=== PATIENT | male | born 1955 ===

== ENCOUNTER 2016-11-14 07:34 | Emergency (ER) | payer MEDICARE ==
--- NOTE | 2016-11-14 08:48 | ED PDOC ---
HPI: Psych/Substance Abuse Time Seen by Provider: 11/14/16 07:35 Chief Complaint (Nursing): Dizziness/Lightheaded Chief Complaint (Provider): Dizziness/Lightheaded History Per: Patient History/Exam Limitations: no limitations Onset/Duration Of Symptoms: Mins Current Symptoms Are (Timing): Better Suicide/Self Injury Attempted (Context): None Modifying Factor(s): None Associated Symptoms: Anxiety Involuntary Hold By: None Additional Complaint(s): Patient is a 61 year old male with a history of HTN and pacemaker, presents to ED for evaluation after a panic attack this morning. Patient states he was in the hospital for a outpt CT for a hernia, sent from the clinic but while waiting experienced severe anxiety. Denies chest pain, headache, fever or back pain. Notes increased stress in life secondary to son having a drug addiction problem. denies SI or HI. n Past Medical History Reviewed: Historical Data, Nursing Documentation, Vital Signs Vital Signs: Last Vital Signs Temp 98.1 F 11/14/16 07:43 Pulse 84 11/14/16 07:43 Resp 20 11/14/16 07:43 BP 117/68 11/14/16 07:43 Pulse Ox 97 11/14/16 07:43 - Medical History PMH: HTN Denies: Asthma, Diabetes, Chronic Kidney Disease - Surgical History Surgical History: Coronary Stent, Pacemaker (AICD - placed in [place]) - Family History Family History: States: Unknown Family Hx - Living Arrangements Living Arrangements: With Family - Social History Current smoker - smoking cessation education provided: No Alcohol: None Drugs: Denies - Home Medications Home Medications: Ambulatory Orders Medication Instructions Recorded Aspirin [Ecotrin] 81 mg PO DAILY #0 tabec 01/06/16 Atorvastatin [Lipitor] 10 mg PO HS #0 tab 01/06/16 Bumetanide 1 mg PO DAILY #0 tablet 01/06/16 Carvedilol [Coreg] 25 mg PO Q12 #0 tab 01/06/16 Ergocalciferol (Vitamin D2) 1.25 mg PO QWK #0 capsule 01/06/16 [Vitamin D2] Ezetimibe [Zetia] 10 mg PO DAILY #0 tab 01/06/16 Lisinopril [Zestril] 10 mg PO DAILY #0 tab 01/06/16 Naproxen [Naprosyn] 500 mg PO BID PRN #0 tablet 01/06/16 Nitroglycerin 0.4 mg SL Q5M PRN #5 tab 01/06/16 Omeprazole [Prilosec] 20 mg PO BID #0 capsule. 01/06/16 Pramipexole Di-HCl [Mirapex] 0.25 mg PO HS #30 tab 01/06/16 - Allergies Allergies/Adverse Reactions: Allergies Allergy/AdvReac Type Severity Reaction Status Date / Time No Known Allergies Allergy Verified 11/14/16 07:49 Review of Systems ROS Statement: Except As Marked, All Systems Reviewed And Found Negative Constitutional: Negative for: Fever, Weakness Eyes: Negative for: Vision Change Cardiovascular: Negative for: Chest Pain, Palpitations, Light Headedness Respiratory: Negative for: Shortness of Breath Gastrointestinal: Negative for: Nausea, Vomiting Neurological: Negative for: Weakness, Numbness Psych: Positive for: Anxiety Physical Exam - Reviewed Nursing Documentation Reviewed: Yes Vital Signs Reviewed: Yes - Physical Exam Appears: Positive for: Non-toxic, No Acute Distress Skin: Positive for: Normal Color, Warm Eye Exam: Positive for: Normal appearance Neck: Positive for: Normal, Painless ROM Cardiovascular/Chest: Positive for: Regular Rate, Rhythm. Negative for: Murmur Respiratory: Positive for: Normal Breath Sounds. Negative for: Respiratory Distress Gastrointestinal/Abdominal: Positive for: Normal Exam Extremity: Positive for: Normal ROM. Negative for: Pedal Edema, Calf Tenderness Neurologic/Psych: Positive for: Alert, Oriented - Laboratory Results Result Diagrams: 11/14/16 10:02 11/14/16 10:02 - ECG ECG: Positive for: Interpreted By Me ECG Rhythm: Positive for: Normal QRS, Sinus Rhythm. Negative for: ST/T Changes Interpretation Of Abn EKG: (+) left axis deviation with flipped T waves in leads V5 and V6 O2 Sat by Pulse Oximetry: 97 (RA) Pulse Ox Interpretation: Normal Medical Decision Making Medical Decision Making: Time: 0830 Initial impression: Anxiety Initial plan: -- EKG -- CMP -- CBC Time: 1030 Labs reviewed all WNL. Will check orthostatic blood pressure/pulse at this time. If normal patient will be discharged Case discussed with Dr. 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 patient will be dc from here and have a CT outpatient for hernia evaluation Scribe Attestation: Documented by Chata Castellano acting as a scribe for Sushant Stephen MD MD Scribe Attestation: All medical record entries made by the Scribe were at my direction and personally dictated by me. I have reviewed the chart and agree that the record accurately reflects my personal performance of the history, physical exam, medical decision making, and the department course for this patient. I have also personally directed, reviewed, and agree with the discharge instructions and disposition. Disposition - Clinical Impression Clinical Impression: Anxiety - Patient ED Disposition Is Patient to be Admitted: No Counseled Patient/Family Regarding: Studies Performed, Diagnosis, Need For Followup - Disposition Disposition: Routine/Home Disposition Time: 10:00 Condition: GOOD Additional Instructions: follow up with your primary doctor in 1-2 days. return to the ED with any worsening or concerning symptoms Instructions: Anxiety (ED)
[2016-11-14 10:26] LABS: CHLORIDE 103 mmol/L (98-107)
[2016-11-14 10:27] LABS: POTASSIUM 4.9 MMOL/L (3.6-5.0); SODIUM 138 mmol/l (132-148)
[2016-11-14 10:29] LABS: ALB/GLOB RATIO 1.3 (1.0-2.1); CARBON DIOXIDE 23 mmol/L (22-30); GFR AFRICAN-AMERICAN > 60; TOTAL PROTEIN 7.6 G/DL (6.3-8.2)
[2016-11-14 10:30] LABS: ALKALINE PHOSPHATASE 133 U/L (38-126); ALT/SGPT 33 U/L (21-72); AST/SGOT 28 U/L (17-59); BLOOD UREA NITROGEN 28 mg/dl (9-20); CALCIUM 9.1 mg/dL (8.4-10.2); GLUCOSE,RANDOM 110 mg/dL (75-110)
[2016-11-14 10:35] LABS: BASO % 0.5 % (0.0-2.0); EOS # 0.1 K/uL (0.0-0.7); EOS % 0.9 % (0.0-4.0); HEMATOCRIT 44.8 % (35.0-51.0); LYMPH # 1.3 K/uL (1.0-4.3); LYMPH % 14.6 % (20.0-40.0); MEAN CELL VOLUME 85.6 fl (80.0-94.0); MEAN CORPUSCULAR HEMOGLOBIN 28.3 pg (27.0-31.0); MEAN CORPUSCULAR HGB CONC 33.1 g/dL (33.0-37.0); MEAN PLATELET VOLUME 8.7 fl (7.2-11.7); MONO # 0.7 K/uL (0.0-0.8); MONO % 7.8 % (0.0-10.0); NEUT % 76.2 % (50.0-75.0); NRBC % 0.1 % (0.0-0.0); RED CELL DISTRIBUTION WIDTH 15.3 % (11.5-14.5); WHITE BLOOD COUNT 9.2 K/uL (4.8-10.8)
[2016-11-14 12:00] VITALS: BP 128/78; PULSE 78; RESP 19; TEMP 97.6
--- NOTE | 2016-11-14 18:21 | CARD ---
APPROVED REPORT EKG Measurement Heart [id number] <Conclusion> Normal sinus rhythm Left axis deviation Left ventricular hypertrophy with QRS widening T wave abnormality, consider lateral ischemia Abnormal ECG
[2016-11-16 01:16] VITALS: O2SAT 97
== END 2016-11-14 12:00 | disposition home or self-care (01) ==
LOC: H.ER 07:34
DX: F41.9 Anxiety disorder, unspecified (principal); R42 Dizziness and giddiness; I10 Essential (primary) hypertension; Z79.82 Long term (current) use of aspirin; Z95.0 Presence of cardiac pacemaker; Z95.5 Presence of coronary angioplasty implant and graft; R94.31 Abnormal electrocardiogram [ECG] [EKG]

== ENCOUNTER 2017-04-23 07:33 | Day surgery (SDC) | payer MEDICARE ==
[2017-04-23] MEDS ORDERED: Lactated Ringer's 500 ML IV ONE (08:07)
[2017-04-23] MEDS ORDERED: Propofol 10 mg/ml Inj (20 ML) ONE ×2 (10:04→11:45)
[2017-04-23 12:07] VITALS: BP 144/91; PULSE 80; RESP 15; TEMP 97; O2SAT 100
== END 2017-04-23 12:27 | disposition home or self-care (01) ==
LOC: H.ENDO 07:33
PROVIDERS: ATTEND Internal Medicine Gastroenterology
DX: Z12.11 Encounter for screening for malignant neoplasm of colon (principal); R13.10 Dysphagia, unspecified; J45.909 Unspecified asthma, uncomplicated; I25.10 Atherosclerotic heart disease of native coronary artery without angina pectoris; I11.0 Hypertensive heart disease with heart failure; I50.9 Heart failure, unspecified; E78.5 Hyperlipidemia, unspecified; G47.33 Obstructive sleep apnea (adult) (pediatric); K64.1 Second degree hemorrhoids; K29.70 Gastritis, unspecified, without bleeding
CPT/HCPCS: 43239; 45378; 88305; 88313; J2001; J2704; J3010; J7120

== ENCOUNTER 2018-12-14 00:47 | Emergency (ER) | payer MEDICARE ==
[2018-12-14 00:56] VITALS: TEMP 98.2
[2018-12-14] MEDS ORDERED: Sodium Chloride 0.9% 1,000 ML IV STA (01:37)
[2018-12-14 02:05] LABS: BASO # 0.1 K/uL (0.0-0.2); BASO % 1.2 % (0.0-2.0); EOS # 0.1 K/uL (0.0-0.7); HEMOGLOBIN 14.8 g/dL (12.0-18.0); LYMPH # 1.6 K/uL (1.0-4.3); MEAN CELL VOLUME 88.1 fl (80.0-94.0); MEAN CORPUSCULAR HEMOGLOBIN 29.1 pg (27.0-31.0); MEAN CORPUSCULAR HGB CONC 33.1 g/dL (33.0-37.0); MEAN PLATELET VOLUME 8.5 fl (7.2-11.7); MONO # 0.6 K/uL (0.0-0.8); NEUT # 4.3 K/uL (1.8-7.0); NEUT % 63.8 % (50.0-75.0); NRBC % 0.1 % (0.0-0.0); RBC 5.08 Mil/uL (4.40-5.90); RED CELL DISTRIBUTION WIDTH 14.5 % (11.5-14.5); WHITE BLOOD COUNT 6.8 K/uL (4.8-10.8)
[2018-12-14] MEDS ORDERED: Tdap Vaccine 0.5 ml Vial (10-64 yrs) IM ONE ×2 (02:06→02:25)
[2018-12-14 02:16] LABS: ALB/GLOB RATIO 1.5 (1.0-2.1); ALBUMIN 4.6 g/dL (3.5-5.0); ALT/SGPT 31 U/L (21-72); AST/SGOT 32 U/L (17-59); BLOOD UREA NITROGEN 11 mg/dl (9-20); GFR NON-AFRICAN AMERICAN > 60; PROTHROMBIN TIME 11.2 Seconds (9.8-13.1)
[2018-12-14 02:19] LABS: PARTIAL THROMBOPLASTIN TIME 32.8 Seconds (25.6-37.1)
[2018-12-14] MEDS ORDERED: Bacitracin 500 Units/gm Oint Foilpak UD ONE (03:48)
[2018-12-14 04:13] VITALS: BP 110/69; PULSE 78; RESP 16; O2SAT 100
--- NOTE | 2018-12-14 04:23 | ED PDOC ---
HPI: Head Injury Time Seen by Provider: 12/14/18 01:15 Chief Complaint (Nursing): Trauma Chief Complaint (Provider): Head injury History Per: Patient History/Exam Limitations: no limitations Onset/Duration Of Symptoms: Hrs Patient States: Fell Striking Head Additional Complaint(s): 63 year old male with pmhx of AICD, HTN and coronary artery disease presents to the ED for an evaluation of head injury. Patient admits to drinking alcohol tonight and he fell and hit the right side of the head as witnessed by the daughter. Otherwise, patient denies loss of consciousness, chest pain, shortness of breath and AICD did not fire or activate. PMD: Dr. Osei Past Medical History Reviewed: Historical Data, Nursing Documentation, Vital Signs Vital Signs: Last Vital Signs Temp 98.2 F 12/14/18 04:11 Pulse 78 12/14/18 04:11 Resp 16 12/14/18 04:11 BP 110/69 12/14/18 04:11 Pulse Ox 100 12/14/18 04:11 Primary Care Provider: FAMILY PROVIDER,NO - Medical History PMH: HTN, Hypercholesterolemia Denies: Asthma, Diabetes, Chronic Kidney Disease - Surgical History Surgical History: Coronary Stent, Pacemaker (AICD - placed in [place]) - Family History Family History: States: Unknown Family Hx - Home Medications Home Medications: Ambulatory Orders Medication Instructions Recorded Aspirin [Ecotrin] 81 mg PO DAILY #0 tabec 01/06/16 Atorvastatin [Lipitor] 10 mg PO HS #0 tab 01/06/16 Bumetanide 1 mg PO DAILY #0 tablet 01/06/16 Carvedilol [Coreg] 25 mg PO Q12 #0 tab 01/06/16 Ezetimibe [Zetia] 10 mg PO DAILY #0 tab 01/06/16 Lisinopril [Zestril] 10 mg PO DAILY #0 tab 01/06/16 Nitroglycerin 0.4 mg SL Q5M PRN #5 tab 01/06/16 Omeprazole [Prilosec] 20 mg PO BID #0 capsule. 01/06/16 Pramipexole Di-HCl [Mirapex] 0.25 mg PO HS #30 tab 01/06/16 Cyclobenzaprine [Cyclobenzaprine 10 mg PO TID PRN #15 tab 12/14/18 HCl] Naproxen [Naprosyn] 500 mg PO Q12 #14 tab 12/14/18 - Allergies Allergies/Adverse Reactions: Allergies Allergy/AdvReac Type Severity Reaction Status Date / Time No Known Allergies Allergy Verified 11/14/16 07:49 Review of Systems ROS Statement: Except As Marked, All Systems Reviewed And Found Negative Cardiovascular: Negative for: Chest Pain Respiratory: Negative for: Shortness of Breath Skin: Positive for: Other (head injury ) Neurological: Negative for: Other (LOC) Physical Exam - Reviewed Nursing Documentation Reviewed: Yes Vital Signs Reviewed: Yes - Physical Exam Appears: Positive for: Non-toxic, No Acute Distress Head Exam: Positive for: ATRAUMATIC, NORMOCEPHALIC. Negative for: NORMAL INSPECTION (large abrasion to the parietal scalp) Skin: Positive for: Normal Color, Warm, Dry. Negative for: Rash Eye Exam: Positive for: EOMI, Normal appearance, PERRL ENT: Positive for: Normal ENT Inspection Neck: Positive for: Normal, Painless ROM, Supple. Negative for: Decreased ROM Cardiovascular/Chest: Positive for: Regular Rate, Rhythm. Negative for: Murmur Respiratory: Positive for: Normal Breath Sounds. Negative for: Decreased Breath Sounds, Wheezing, Respiratory Distress Gastrointestinal/Abdominal: Positive for: Normal Exam, Soft. Negative for: Tenderness Back: Positive for: Normal Inspection Extremity: Positive for: Normal ROM. Negative for: Tenderness, Pedal Edema, Deformity Neurological/Psych: Positive for: Awake, Alert, Normal Tone, Oriented (x3) - Laboratory Results Result Diagrams: 12/14/18 01:45 12/14/18 01:45 Lab Results: PT 11.2 Seconds (9.8-13.1) 12/14/18 01:45 INR 1.0 12/14/18 01:45 APTT 32.8 Seconds (25.6-37.1) 12/14/18 01:45 Troponin I < 0.0120 ng/mL (0.00-0.120) 12/14/18 01:45 Total Bilirubin 0.4 mg/dl (0.2-1.3) 12/14/18 01:45 AST 32 U/L (17-59) 12/14/18 01:45 ALT 31 U/L (21-72) 12/14/18 01:45 Alkaline Phosphatase 99 U/L (38-126) 12/14/18 01:45 Total Protein 7.7 G/DL (6.3-8.2) 12/14/18 01:45 Albumin 4.6 g/dL (3.5-5.0) 12/14/18 01:45 Globulin 3.1 gm/dL (2.2-3.9) 12/14/18 01:45 Albumin/Globulin Ratio 1.5 (1.0-2.1) 12/14/18 01:45 - ECG O2 Sat by Pulse Oximetry: 100 (RA) Pulse Ox Interpretation: Normal Medical Decision Making Medical Decision Making: Time: 135 Impression: 63yo male with head injury in setting for alcohol use Plan: Head w/o contrast CT EKG Alcohol serum CMP Troponin CBC w/ differential PTT Prothrombin time Tetanus 0.5ml Normal saline 1000 mls/hr Toradol 15mg Heplock insertion Reevaluation 313 CT SCAN OF THE BRAIN WITHOUT IV CONTRAST CLINICAL INDICATION: Trauma laceration posterior head, pt denies loc (Hx) / TRAUMA FALL (DICOM Hx) TECHNIQUE: Axial and reformatted sagittal and coronal images of the brain obt ained without IV contrast administration. Normal size of the ventricles and extra-axial spaces for the patient's age. Normal white matter tracts of the supratentorial brain. Normal basal ganglia an d thalami. Normal brainstem. Normal cerebellum. There is no demonstrated extra-axial, intraparenchymal, or intraventricular hemorrhage. There are no findings of an acute ischemic infarction. Normal calvarium. There is no demonstrated fracture. Right parietal subgaleal soft tissue hematoma. Normal visualized paranasal sinuses. IMPRESSION: Normal unenhanced CT scan of the brain. Right parietal subgaleal soft tissue hematoma. Electronically signed on December 14, 2018 3:14:18 AM EDT by: Esha Razo M.D., Certified by [employer], MSK, Neuroradiology [id number] Patient continues to feel well in ED and is stable for discharge. Patient diagnosed with head injury and scalp abrasion -- Scribe Attestation: Documented by Kiley Jacome, acting as a scribe for Biju Wagner MD Provider Scribe Attestation: All medical record entries made by the Scribe were at my direction and personally dictated by me. I have reviewed the chart and agree that the record accurately reflects my personal performance of the history, physical exam, medical decision making, and the department course for this patient. I have also personally directed, reviewed, and agree with the discharge instructions and disposition. Disposition - Clinical Impression Clinical Impression: Scalp abrasion, Head injury - Patient ED Disposition Is Patient to be Admitted: No - Disposition Disposition: Routine/Home Disposition Time: 03:56 Condition: STABLE Prescriptions: Cyclobenzaprine [Cyclobenzaprine HCl] 10 mg PO TID PRN #15 tab PRN Reason: Muscle Pain Naproxen [Naprosyn] 500 mg PO Q12 #14 tab Instructions: Skin Abrasions, Minor Head Injury Forms: [employer] ([place])
--- NOTE | 2018-12-14 11:30 | CT ---
Date of service: 12/14/2018 PROCEDURE: CT HEAD WITHOUT CONTRAST. HISTORY: Headache COMPARISON: None available. TECHNIQUE: Axial computed tomography images were obtained through the head/brain without intravenous contrast. Radiation dose: Total exam DLP = 918.47 mGy-cm. This CT exam was performed using one or more of the following dose reduction techniques: Automated exposure control, adjustment of the mA and/or kV according to patient size, and/or use of iterative reconstruction technique. FINDINGS: HEMORRHAGE: No intracranial hemorrhage. BRAIN: Minor chronic periventricular white matter ischemic changes VENTRICLES: Unremarkable. No hydrocephalus. CALVARIUM: No acute calvarial fracture. There is mild right posterior superior parieto-occipital scalp swelling and presumed small scalp laceration.. PARANASAL SINUSES: Unremarkable as visualized. No significant inflammatory changes. MASTOID AIR CELLS: Unremarkable as visualized. No inflammatory changes. OTHER FINDINGS: None. IMPRESSION: No acute intracranial hemorrhage. Minor chronic periventricular white matter ischemic changes. Mild right posterior superior parieto-occipital scalp swelling and presumed scalp laceration.
--- NOTE | 2018-12-14 21:59 | CARD ---
APPROVED REPORT Date of service: 12/14/2018 EKG Measurement Heart [id number] <Conclusion> Normal sinus rhythm Left axis deviation Left ventricular hypertrophy with QRS widening Abnormal ECG
== END 2018-12-14 04:11 | disposition home or self-care (01) ==
LOC: H.ER 00:47
DX: S09.90XA Unspecified injury of head, initial encounter (principal); S00.01XA Abrasion of scalp, initial encounter; W19.XXXA Unspecified fall, initial encounter; Y92.89 Other specified places as the place of occurrence of the external cause; Z95.0 Presence of cardiac pacemaker; I25.10 Atherosclerotic heart disease of native coronary artery without angina pectoris
CPT/HCPCS: 70450; 80053; 84484; 85025; 85610; 85730; 90471; 90715; 93005; 96374; 99285; G0480; J1885; J7030